=== PATIENT | female | born 1950 | race Caucasian/White ===

== ENCOUNTER 2019-10-16 13:16 | Outpatient (CLI) | payer MEDICARE, BC, SELFPAY ==
--- NOTE | 2019-10-16 | XRR_ITS ---
PROCEDURE INFORMATION: Exam: XR Right Foot Complete Exam date and time: 10/16/2019 1:51 PM Age: 68 years old Clinical indication: Pain; Foot; Right; Additional info: Lateral foot pain, right, non traumatic TECHNIQUE: Imaging protocol: XR Right foot. Views: 3 or more views. COMPARISON: No relevant prior studies available. FINDINGS: Bones/joints: A comminuted fracture is seen in the proximal shaft of the 5th metatarsal. The remainder of the bones in the foot are unremarkable. Soft tissues: Soft tissue edema is seen in the lateral aspect of the foot XR/XR foot RT min 3V* [id number] IMPRESSION: Comminuted fracture 5th metatarsal Soft tissue edema posterior lateral foot
== END 2019-10-16 13:17 | disposition home or self-care (01) ==
LOC: RAD 13:24
PROVIDERS: PCP Family Medicine; Visit Provider Family Medicine
DX: S92.351A Displaced fracture of fifth metatarsal bone, right foot, initial encounter for closed fracture (principal); X58.XXXA Exposure to other specified factors, initial encounter; R60.0 Localized edema
CPT/HCPCS: 73630

== ENCOUNTER 2020-06-05 08:36 | Outpatient (CLI) | payer MEDICARE, BC, SELFPAY ==
--- NOTE | 2020-06-05 08:45 | MM_ITS ---
WS: [id number] SCREENING DIGITAL MAMMOGRAM WITH CAD HISTORY: SCREENING COMPARISON: 03/20/2018 and 10/08/2016 Bilateral CC and MLO views submitted. Computer aided detection analyzed. Breast composition: The breasts are almost entirely fatty. No suspicious masses, microcalcifications or architectural distortion. MM/[place] [id number] IMPRESSION: BI-RADS: 1-Negative FOLLOW UP: 1 Year Follow-up
== END 2020-06-05 08:37 | disposition home or self-care (01) ==
LOC: RADSHAW 08:42
PROVIDERS: PCP Family Medicine; Visit Provider Family Medicine
DX: Z12.31 Encounter for screening mammogram for malignant neoplasm of breast (principal)
CPT/HCPCS: 77067

== ENCOUNTER 2021-08-17 14:13 | Outpatient (CLI) | payer MEDICARE, BC, SELFPAY ==
--- NOTE | 2021-08-17 14:22 | XR_ITS ---
WS: [email or web address] SCREENING DEXA SCAN [employer] CLINICAL INFORMATION: POSTMENOPAUSAL COMPARISON: FINDINGS: The L1-L4 bone mineral density measures 1.400 g/cm2. This corresponds to a T score score of 1.8 and Z score of 2.3. Left femoral neck bone mineral density measures 0.894 g/cm2. This corresponds to a T score of -0.9 an d Z score of -0.2. Right femoral neck bone mineral density measures 0.844 g/cm2. This corresponds to a T score -1.3of an d Z score of -0.6. Mean femoral neck bone mineral density measures 0.869 g/cm2. This corresponds to a T score of -1.1 an d Z score of -0.4. XR/XR DEXA axial skeleton* [id number] IMPRESSION: Osteopenia in the femoral necks at the lower end of the range. Normal bone mine ralization lumbar spine. Patient's FRAX calculated 10 year probability for major osteoporotic fracture i s 25.0 % and osteoporotic hip fracture is 6.6%.
== END 2021-08-17 14:14 | disposition home or self-care (01) ==
PROVIDERS: PCP Family Medicine; Visit Provider Family Medicine
DX: Z78.0 Asymptomatic menopausal state (principal); M85.88 Other specified disorders of bone density and structure, other site
CPT/HCPCS: 77080

== ENCOUNTER 2021-10-07 14:57 | Outpatient (CLI) | payer MEDICARE, BC, SELFPAY ==
--- NOTE | 2021-10-07 15:09 | MM_ITS ---
WS: [email or web address] Bilateral screening 3D tomosynthesis digital mammogram, 10/07/2021 Clinical Data: SCREENING Comparison: 06/05/2020, 03/20/2018, 03/18/2017, 10/08/2016, 07/10/2015, 04/05/2011, 08/28/2008, 04/03/2007 . Findings: The breast parenchymal pattern shows fat replacement. No spiculated masses or clustered calcification s are seen. There are no secondary signs of carcinoma. There are numerous moles on both breasts. MM/[place] [id number] Impression: 1. Negative bilateral mammogram unchanged. 2. Recommend annual screening mammograms. BIRADS: 1-Negative FOLLOW UP: 1 Year Follow-up The CAD bad cloth checker was used.
== END 2021-10-07 14:58 | disposition home or self-care (01) ==
LOC: RAD 15:01
PROVIDERS: PCP Family Medicine; Visit Provider Family Medicine
DX: Z12.31 Encounter for screening mammogram for malignant neoplasm of breast (principal)
CPT/HCPCS: 77063; 77067

== ENCOUNTER 2022-04-09 09:37 | Outpatient (CLI) | payer MEDICARE, BC, SELFPAY ==
--- NOTE | 2022-04-09 10:17 | XR_ITS ---
WS: [email or web address] Exam: XR thoracic spine 2V [id number] Date/Time of Exam: 04/09/2022 10:21 AM Reason For Exam: BACK PAIN, DORSALGIA No fracture or dislocation. Spondylosis and degenerative disc changes noted. Increased kyphosis. Norm al paraspinal soft tissues. XR/XR thoracic spine 2V [id number] IMPRESSION: 1. Moderate degenerative changes and increased kyphosis. 2. No fracture or malalignment.
--- NOTE | 2022-04-09 10:17 | XR_ITS ---
WS: [email or web address] Exam: XR lumbar spine 2-3V* [id number] Date/Time of Exam: 04/09/2022 10:21 AM Reason For Exam: BACK PAIN, DORSALGIA No fracture or dislocation. Mild degenerative anterolisthesis of L4 on L5. Facet arthropathy at all l evels. Disc spaces are relatively well maintained. Slight dextroscoliosis at the thoracolumbar juncti on. XR/XR lumbar spine 2-3V* [id number] IMPRESSION: 1. No fracture or malalignment. 2. Moderately advanced degenerative facet change at all levels. Slight degenera tive anterolisthesis of L4 on L5. 3. Large anterior osteophytes from T11 to L2
== END 2022-04-09 09:38 | disposition home or self-care (01) ==
LOC: RAD 09:48
PROVIDERS: PCP Family Medicine; Visit Provider Family Medicine
DX: M47.896 Other spondylosis, lumbar region (principal); M25.78 Osteophyte, vertebrae; M47.894 Other spondylosis, thoracic region
CPT/HCPCS: 72070; 72100

== ENCOUNTER → 2022-05-04 13:19 | Outpatient (BNVA) | payer MEDICARE, BC, SELFPAY | PROVIDERS: PCP Family Medicine; Visit Provider Surgery | DX: R10.9 Unspecified abdominal pain (principal) | CPT/HCPCS: 99203 ==

== ENCOUNTER 2024-02-15 09:37 | Outpatient (CLI) | payer MEDICARE, SELFPAY ==
--- NOTE | 2024-02-15 09:41 | MM_ITS ---
WS: [email or web address] SCREENING DIGITAL TOMOSYNTHESIS MAMMOGRAM WITH CAD HISTORY: SCREENING COMPARISON: 10/07/2021, 06/05/2020 Bilateral CC and MLO with tomosynthesis views submitted. Synthetic mammography reviewed. Computer aid ed detection analyzed. Breast composition: The breasts are almost entirely fatty. No suspicious masses, microcalcifications or architectural distortion. There are a few benign scattered calcifications within each breast. MM/MM scr BI tomosynthesis [id number] IMPRESSION: BI-RADS: 2 - Benign. FOLLOW UP: 1 Year Follow-up
== END 2024-02-15 09:38 | disposition home or self-care (01) ==
LOC: RAD 09:38
PROVIDERS: PCP Family Medicine; Visit Provider Nurse Practitioner Family
DX: Z12.31 Encounter for screening mammogram for malignant neoplasm of breast (principal); R92.313 Mammographic fatty tissue density, bilateral breasts; R92.1 Mammographic calcification found on diagnostic imaging of breast
CPT/HCPCS: 77063; 77067

== ENCOUNTER 2024-02-16 14:36 | Outpatient (CLI) | payer MEDICARE, SELFPAY ==
--- NOTE | 2024-02-16 14:40 | XR_ITS ---
WS: [email or web address] SCREENING DEXA SCAN [employer] CLINICAL INFORMATION: ASYMPTOMATIC MENOPAUSAL STATE COMPARISON: 2021 FINDINGS: The L1-L4 bone mineral density measures 1.481 g/cm2. This corresponds to a T score score of 2.5 and Z score of 3.1. Left femoral neck bone mineral density measures 0.882 g/cm2. This corresponds to a T score of -1.0 an d Z score of -0.2. Right femoral neck bone mineral density measures 0.855 g/cm2. This corresponds to a T score -1.2of an d Z score of -0.4. Mean femoral neck bone mineral density measures 0.868 g/cm2. This corresponds to a T score of -1.1 an d Z score of -0.3. XR/XR DEXA axial skeleton* [id number] IMPRESSION: Normal bone mineralization lumbar spine. Osteopenia femoral necks. Patient's FRAX calculated 10 year probability for major osteoporotic fracture i s 27.4% and osteoporotic hip fracture is 11.8%. Bone mineral density lumbar spine increased 5.8% Bone mineral density femoral necks decreased -0.1%
== END 2024-02-16 14:37 | disposition home or self-care (01) ==
PROVIDERS: PCP Family Medicine; Visit Provider Nurse Practitioner Family
DX: Z13.820 Encounter for screening for osteoporosis (principal); Z78.0 Asymptomatic menopausal state; M85.88 Other specified disorders of bone density and structure, other site
CPT/HCPCS: 77080

== ENCOUNTER 2025-02-27 08:07 | Outpatient (CLI) | payer MEDICARE, SELFPAY ==
--- NOTE | 2025-02-27 08:18 | MM_ITS ---
WS: [email or web address] BILATERAL SCREENING DIGITAL TOMOSYNTHESIS MAMMOGRAM WITH CAD HISTORY: SCREENING COMPARISON: 02/15/2024, 10/07/2021 Bilateral CC and MLO views with tomosynthesis and synthetic mammography submitted. Computer aided detection analyzed. Breast composition: The breasts are almost entirely fatty. No suspicious masses, microcalcifications or architectural distortion. New very small calcifications are noted in the posterior inferior aspect of each breast. These are skin calcifications. No suspicious calcifications within the breast parenchyma and no mass or distortion. MM/MM scr BI tomosynthesis [id number] IMPRESSION: BI-RADS: 2 - Benign. FOLLOW UP: 1 Year Follow-up
== END 2025-02-27 08:08 | disposition home or self-care (01) ==
PROVIDERS: PCP Nurse Practitioner Family; Visit Provider Nurse Practitioner Family
DX: Z12.31 Encounter for screening mammogram for malignant neoplasm of breast (principal); R92.313 Mammographic fatty tissue density, bilateral breasts; R92.1 Mammographic calcification found on diagnostic imaging of breast
CPT/HCPCS: 77063; 77067

== ENCOUNTER 2025-03-07 10:56 | Outpatient (CLI) | payer MEDICARE, SELFPAY ==
--- NOTE | 2025-03-07 12:08 | XR_ITS ---
WS: [email or web address] XR lumbar spine 2-3V* [id number] REASON FOR EXAM: SCIATICA FINDINGS: Mild rotatory dextroscoliosis normal lumbar lordosis. Chronic biconcave compression deformities of L1 and L2. Moderate narrowing of the L5-S1 disc space with moderate endplate sclerosis and mild osteophytosis. Mild narrowing of the disc space with mild osteophytosis in the remainder of the lumbar spine. No spondylolysis. 3 to 4 mm of anterolisthesis of L4 on L5. XR/XR lumbar spine 2-3V* [id number] IMPRESSION: Lumbar degenerative spondylosis as above. Mild progression since the previous e xamination of 04/09/2022.
== END 2025-03-07 10:57 | disposition home or self-care (01) ==
LOC: RAD 10:57
PROVIDERS: PCP Nurse Practitioner Family; Visit Provider Nurse Practitioner Family
DX: M54.30 Sciatica, unspecified side (principal); M41.86 Other forms of scoliosis, lumbar region; M43.8X6 Other specified deforming dorsopathies, lumbar region; M25.78 Osteophyte, vertebrae; M48.07 Spinal stenosis, lumbosacral region; M43.16 Spondylolisthesis, lumbar region
CPT/HCPCS: 72100

== ENCOUNTER 2025-04-12 09:45 | Outpatient (CLI) | payer MEDICARE, SELFPAY ==
--- NOTE | 2025-04-12 09:54 | XR_ITS ---
WS: [email or web address] XR knee LT 1-2V [id number] REASON FOR EXAM: posterior left knee pain FINDINGS: No fracture or focal bone lesion. Minimal narrowing of the medial knee joint space with minimal subchondral sclerosis and osteophytosis. Moderate narrowing of the lateral joint space with moderate subchondral sclerosis and mild osteophytosis Patellofemoral joint space is intact with moderate subchondral sclerosis and osteophytosis of the patella. Mild opposing osteophytosis of the medial and lateral femoral condyles.. XR/XR knee LT 1-2 [id number] IMPRESSION: Mild to moderate osteoarthritis.
== END 2025-04-12 09:46 | disposition home or self-care (01) ==
PROVIDERS: PCP Nurse Practitioner Family; Visit Provider Nurse Practitioner Family
DX: M25.562 Pain in left knee (principal); M17.12 Unilateral primary osteoarthritis, left knee
CPT/HCPCS: 73560

== ENCOUNTER 2025-04-29 13:07 | Outpatient (CLI) | payer MEDICARE, SELFPAY ==
--- NOTE | 2025-04-29 13:16 | US_ITS ---
WS: [email or web address] ULTRASOUND SOFT TISSUES LEFT popliteal fossa. HISTORY: PAIN IN LEFT KNEE COMPARISON: None available. TECHNIQUE: 2-D and color Doppler imaging is submitted. Ultrasound directed along the posterior LEFT knee. There is a very small elongated fluid collection measuring 2.5 x 2.9 x 0.5 cm suspicious for a Miles's cyst. There is an additional cyst in the soft tissues posterior to the knee which is separate from the Miles's cyst. This additional cyst measures 1.0 x 0.7 cm. US/US soft tissue/extremity [id number] IMPRESSION: 1. Very small left-sided Miles's cyst. 2. Additional cystic mass in the posterior LEFT knee measuring 1.0 x 0.7 cm is separate from the Miles's cyst. This may be a small ganglion or meniscal cyst. No color Doppler was performed of this cystic mass therefore vascular lesion i s not excluded. Consider evaluation by MRI.
== END 2025-04-29 13:08 | disposition home or self-care (01) ==
LOC: RAD 13:10
PROVIDERS: PCP Nurse Practitioner Family; Visit Provider Nurse Practitioner Family
DX: M71.22 Synovial cyst of popliteal space [Baker], left knee (principal); R22.42 Localized swelling, mass and lump, left lower limb
CPT/HCPCS: 76882